=== PATIENT | female | born 1960 ===

== ENCOUNTER 2017-06-22 01:14 | Outpatient (CLI) | payer BC | END 2017-06-22 23:59 | disposition home or self-care (01) | LOC: DIABETIC 01:14 | PROVIDERS: ATTEND Family Medicine | DX: E11.9 Type 2 diabetes mellitus without complications (principal) | CPT/HCPCS: G0108 ==

== ENCOUNTER 2017-08-03 02:52 | Outpatient (CLI) | payer BC | END 2017-08-03 23:59 | disposition home or self-care (01) | LOC: DIABETIC 02:52 | PROVIDERS: ATTEND Family Medicine | DX: E11.9 Type 2 diabetes mellitus without complications (principal) | CPT/HCPCS: G0108 ==

== ENCOUNTER 2017-10-26 02:26 | Outpatient (CLI) | payer BC | END 2017-10-26 23:59 | disposition home or self-care (01) | LOC: DIABETIC 02:26 | PROVIDERS: ATTEND Family Medicine | DX: E11.65 Type 2 diabetes mellitus with hyperglycemia (principal); Z79.899 Other long term (current) drug therapy; Z88.2 Allergy status to sulfonamides | CPT/HCPCS: G0108 ==

== ENCOUNTER 2018-01-27 01:31 | Outpatient (CLI) | payer BC | END 2018-01-27 23:59 | disposition home or self-care (01) | LOC: DIABETIC 01:31 | PROVIDERS: ATTEND Family Medicine | DX: E11.65 Type 2 diabetes mellitus with hyperglycemia (principal); Z79.84 Long term (current) use of oral hypoglycemic drugs; Z88.2 Allergy status to sulfonamides | CPT/HCPCS: G0108 ==

== ENCOUNTER 2018-06-06 00:50 | Outpatient (CLI) | payer BC | END 2018-06-06 23:59 | disposition home or self-care (01) | LOC: DIABETIC 00:50 | PROVIDERS: ATTEND Family Medicine | DX: E11.65 Type 2 diabetes mellitus with hyperglycemia (principal); Z79.84 Long term (current) use of oral hypoglycemic drugs; Z88.2 Allergy status to sulfonamides | CPT/HCPCS: G0108 ==

== ENCOUNTER 2018-12-08 03:14 | Outpatient (CLI) | payer BC | END 2018-12-08 23:59 | disposition home or self-care (01) | LOC: DIABETIC 03:14 | PROVIDERS: ATTEND Family Medicine | DX: E11.9 Type 2 diabetes mellitus without complications (principal); Z79.84 Long term (current) use of oral hypoglycemic drugs; Z79.899 Other long term (current) drug therapy; Z88.2 Allergy status to sulfonamides | CPT/HCPCS: G0108 ==

== ENCOUNTER 2019-03-20 02:27 | Outpatient (CLI) | payer BC | END 2019-03-20 23:59 | disposition home or self-care (01) | LOC: DIABETIC 02:27 | PROVIDERS: ATTEND Family Medicine | DX: E11.9 Type 2 diabetes mellitus without complications (principal); Z79.84 Long term (current) use of oral hypoglycemic drugs | CPT/HCPCS: G0108 ==